=== PATIENT | male | born 1980 | race Caucasian/White ===

== ENCOUNTER → 2018-11-02 | Outpatient (CLI) | payer MEDICARE, OTHER ==
[2018-11-02 08:34] LABS: Source, Urine Clean Catch
[2018-11-02 13:54] LABS: Bacteria Rare /hpf; Red Blood Cells, Urine Not Seen /hpf (0-2); Squamous Epithelial Cells Not Seen /hpf (Few); White Blood Cells, Urine Not Seen /hpf (0-5)
== END | disposition home or self-care (01) ==
LOC: LAB SHORT 08:30 → LAB SRC 08:30 → LAB FUT 11-02 08:30
PROVIDERS: Physician Assistant
DX: R30.9 Painful micturition, unspecified (principal); R10.31 Right lower quadrant pain
CPT/HCPCS: 81015; 87086

== ENCOUNTER → 2021-07-08 | Outpatient (CLI) | payer OTHER | END | disposition home or self-care (01) | LOC: LAB SHORT 14:17 | DX: N34.2 Other urethritis (principal) | CPT/HCPCS: 87086 ==

== ENCOUNTER → 2021-08-19 | Outpatient (CLI) | payer OTHER ==
[2021-08-19 16:53] LABS: BASOPHILS ABSOLUTE AUTO 0.05 K/mm3 (0.00-0.23); BASOPHILS PERCENT AUTO 1 % (0-2); EOSINOPHILS ABSOLUTE AUTO 0.13 K/mm3 (0.00-0.68); EOSINOPHILS PERCENT AUTO 2 % (0-6); Hematocrit 44.9 % (37.0-53.0); Hemoglobin 15.4 g/dL (13.5-17.5); IMMATURE GRAN ABSOLUTE AUTO 0.03 K/mm3 (0.00-0.10); IMMATURE GRAN PERCENT AUTO 0 % (0-1); LYMPHOCYTES ABSOLUTE AUTO 1.65 K/mm3 (0.84-5.20); LYMPHOCYTES PERCENT AUTO 21 % (21-46); MONOCYTES ABSOLUTE AUTO 0.68 K/mm3 (0.16-1.47); MONOCYTES PERCENT AUTO 9 % (4-13); Mean Corpuscular HGB 30.8 pg (26.0-34.0); Mean Corpuscular HGB Conc 34.3 g/dL (31.5-36.5); Mean Corpuscular Volume 90 fL (80-100); Mean Platelet Volume 9.8 fL (9.1-12.4); NEUTROPHILS ABSOLUTE AUTO 5.46 K/mm3 (1.96-9.15); NEUTROPHILS PERCENT AUTO 68 % (41-73); Platelet Count 209 K/mm3 (150-400); RDW Coefficient Variation 13.5 % (11.7-14.2); RDW Standard Deviation 43.7 fL (35.1-46.3)
[2021-08-19 16:57] LABS: Anion Gap 7 mmol/L (6-16); Blood Urea Nitrogen 10 mg/dL (8-24); CO2, Blood 27 mmol/L (21-32); Calcium, Blood 7.9 mg/dL (8.5-10.1); Chloride, Blood 108 mmol/L (98-108); Glomerular Filtration Rate >60 (60-); Glucose, Blood 129 mg/dL (70-99); Potassium, Blood 3.9 mmol/L (3.5-5.5); Sodium, Blood 142 mmol/L (136-145)
== END | disposition home or self-care (01) ==
LOC: LAB SHORT 16:45 → LAB 16:45
PROVIDERS: Physician Assistant Surgical
DX: R11.0 Nausea (principal); R53.83 Other fatigue
CPT/HCPCS: 80048; 84443; 85025

== ENCOUNTER 2021-12-28 15:51 | Emergency (ER) | payer OTHER ==
[~2021-12-28] VITALS: Ht 180.3 cm; Wt 104.3 kg
[2021-12-28] MEDS ORDERED: DULOXETINE HCL60 M1 PO (15:57)
[2021-12-28 17:56] LABS: BASOPHILS ABSOLUTE AUTO 0.05 K/mm3 (0.00-0.23); BASOPHILS PERCENT AUTO 0 % (0-2); EOSINOPHILS ABSOLUTE AUTO 0.06 K/mm3 (0.00-0.68); EOSINOPHILS PERCENT AUTO 0 % (0-6); Hematocrit 48.6 % (37.0-53.0); Hemoglobin 16.5 g/dL (13.5-17.5); IMMATURE GRAN ABSOLUTE AUTO 0.08 K/mm3 (0.00-0.10); IMMATURE GRAN PERCENT AUTO 1 % (0-1); LYMPHOCYTES ABSOLUTE AUTO 1.37 K/mm3 (0.84-5.20); LYMPHOCYTES PERCENT AUTO 9 % (21-46); MONOCYTES ABSOLUTE AUTO 0.81 K/mm3 (0.16-1.47); MONOCYTES PERCENT AUTO 5 % (4-13); Mean Corpuscular HGB 29.9 pg (26.0-34.0); Mean Corpuscular Volume 88 fL (80-100); Mean Platelet Volume 9.5 fL (9.1-12.4); NEUTROPHILS ABSOLUTE AUTO 12.82 K/mm3 (1.96-9.15); NEUTROPHILS PERCENT AUTO 85 % (41-73); Platelet Count 216 K/mm3 (150-400); RDW Coefficient Variation 12.7 % (11.7-14.2); RDW Standard Deviation 41.4 fL (35.1-46.3); Red Blood Cell Count 5.51 M/mm3 (4.30-5.90); White Blood Cell Count 15.19 K/mm3 (4.00-11.30)
[2021-12-28 18:07] LABS: Influenza A, PCR NEGATIVE (NEGATIVE); Influenza B, PCR NEGATIVE (NEGATIVE); Resp Syncytial Virus, PCR NEGATIVE (NEGATIVE); SARS-Cov-2 (COVID-19) PCR, MMC NEGATIVE (NEGATIVE)
[2021-12-28 18:10] LABS: Albumin, Blood 3.7 g/dL (3.4-5.0); Albumin/Globulin Ratio 1.3 (0.8-1.8); Bilirubin, Total 0.9 mg/dL (0.1-1.0); Bun/Creatinine Ratio 12.7 (12.0-20.0); Calcium, Blood 8.8 mg/dL (8.5-10.1); Creatinine, Blood 0.87 mg/dL (0.60-1.20); Globulin, Blood 2.9 g/dL (2.2-4.0); Potassium, Blood 4.1 mmol/L (3.5-5.5); Total Protein, Blood 6.6 g/dL (6.4-8.2)
[2021-12-28] MEDS ORDERED: OXAYDO5 M1 PO (19:41)
[2021-12-28] MEDS ORDERED: IBUP800 PO (19:41)
== END 2021-12-28 21:50 | disposition home or self-care (01) ==
LOC: ER 15:51
PROVIDERS: Physician Assistant
DX: S52.001A Unspecified fracture of upper end of right ulna, initial encounter for closed fracture (principal); V18.4XXA Pedal cycle driver injured in noncollision transport accident in traffic accident, initial encounter; Z88.1 Allergy status to other antibiotic agents
CPT/HCPCS: 0241U; 72040; 73070; 73080; 80053; 85025; A9270; J1170; J1885; J2405; J2704; J7030

== ENCOUNTER 2022-06-24 08:10 | Emergency (ER) | payer OTHER ==
[~2022-06-24] VITALS: Ht 180.3 cm; Wt 108.9 kg
[~2022-06-24 08:10] MED LIST: DULOXETINE HCL60 M1 PO; IBUP800 PO; OXAYDO5 M1 PO
[2022-06-24] MEDS ORDERED: HYDR1TAB94 PO (10:33)
== END 2022-06-24 11:03 | disposition home or self-care (01) ==
LOC: ER 08:10
DX: S30.0XXA Contusion of lower back and pelvis, initial encounter (principal); W01.190A Fall on same level from slipping, tripping and stumbling with subsequent striking against furniture, initial encounter; J45.909 Unspecified asthma, uncomplicated; Z88.1 Allergy status to other antibiotic agents; Z79.899 Other long term (current) drug therapy
CPT/HCPCS: 72100; 72220; 99283-25; A9270

== ENCOUNTER 2023-10-09 11:26 | Day surgery (SDC) | payer OTHER ==
[~2023-10-09] VITALS: Ht 180.3 cm; Wt 116.0 kg
[~2023-10-09 11:26] MED LIST changes: +EPINEPhrine HCl 1 MG / ML 30ML Vial ONE; +FAMO20 PO; +HYDR1TAB94 PO; +LORA10ER PO; +Lactated Ringer's 1,000 ML IV ONE; +MAGNESIUM; +MELATONIN5 M1 PO; +TRAZ50 PO
[2023-10-09] MEDS ORDERED: Lactated Ringer's 1,000 ML IV ONE (12:18)
[2023-10-09] MEDS ORDERED: Dexamethasone Sod Phos 10 MG/ML 1ML VIAL ONE (13:52)
[2023-10-09] MEDS ORDERED: propofoL 20 ML IV ONE (13:52)
[2023-10-09] MEDS ORDERED: FentaNYL Citrate 50 MCG/ML 2 ML Injection ONE (13:52)
[2023-10-09] MEDS ORDERED: Ondansetron HCl 2 MG / ML 2ML Vial ONE (13:52)
[2023-10-09] MEDS ORDERED: Sugammadex Sodium 200 MG/2ML SDV (100 MG/ML) ONE (13:52)
[2023-10-09] MEDS ORDERED: Rocuronium Bromide 10 MG/ML 5ML Injection IV ONE (13:52)
[2023-10-09] MEDS ORDERED: Lidocaine 1%-Epineph 1:200000 30 ML SDV XX ONE (14:20)
--- NOTE | 2023-10-09 15:11 | NUR ---
10/09/23 1511 CONNIE SALAZAR PT CAME OUT COUGHING AND MOVING FROM OR W/O ANY DRESSING UNDER NARES. NO BLEEDING/DRAINAGE
[2023-10-09] MEDS ORDERED: OxyCODONE HCL 5 MG TAB ONE (15:59)
[2023-10-09 16:09] VITALS: BP 117/95
--- NOTE | 2023-10-09 16:15 | NUR ---
10/09/23 2817 CONNIE SALAZAR PT HAS CANE SENT HOME WITH HIM AT [place]
== END 2023-10-09 16:14 | disposition home or self-care (01) ==
LOC: ORSCSDS 11:26
PROVIDERS: Otolaryngology
PROC: 09SL0ZZ Reposition Nasal Turbinate, Open Approach (ICD-10-PCS; principal; 2023-10-09 13:30)
PROC: 09BM0ZZ Excision of Nasal Septum, Open Approach (ICD-10-PCS; principal; 2023-10-09 13:30)
DX: J34.2 Deviated nasal septum (principal); J34.3 Hypertrophy of nasal turbinates; G47.33 Obstructive sleep apnea (adult) (pediatric); K21.9 Gastro-esophageal reflux disease without esophagitis; G62.9 Polyneuropathy, unspecified; E66.9 Obesity, unspecified; Z68.35 Body mass index [BMI] 35.0-35.9, adult; Z79.899 Other long term (current) drug therapy; F41.8 Other specified anxiety disorders
CPT/HCPCS: A9270; J0171; J1100; J2405; J2704; J3010; J7120

== ENCOUNTER 2024-04-02 11:19 | Emergency (ER) | payer OTHER ==
[~2024-04-02] VITALS: Ht 180.3 cm; Wt 122.5 kg
[~2024-04-02 11:19] MED LIST changes: -EPINEPhrine HCl 1 MG / ML 30ML Vial ONE; -Lactated Ringer's 1,000 ML IV ONE
[2024-04-02 11:23] VITALS: BP 157/111
[2024-04-02 11:56] LABS: BASOPHILS ABSOLUTE AUTO 0.06 K/mm3 (0.00-0.23); BASOPHILS PERCENT AUTO 1 % (0-2); EOSINOPHILS ABSOLUTE AUTO 0.21 K/mm3 (0.00-0.68); EOSINOPHILS PERCENT AUTO 2 % (0-6); Hematocrit 49.5 % (37.0-53.0); Hemoglobin 17.2 g/dL (13.5-17.5); IMMATURE GRAN ABSOLUTE AUTO 0.04 K/mm3 (0.00-0.10); IMMATURE GRAN PERCENT AUTO 0 % (0-1); LYMPHOCYTES ABSOLUTE AUTO 2.48 K/mm3 (0.84-5.20); LYMPHOCYTES PERCENT AUTO 27 % (21-46); MONOCYTES ABSOLUTE AUTO 0.74 K/mm3 (0.16-1.47); MONOCYTES PERCENT AUTO 8 % (4-13); Mean Corpuscular HGB 30.3 pg (26.0-34.0); Mean Corpuscular HGB Conc 34.7 g/dL (31.5-36.5); Mean Corpuscular Volume 87 fL (80-100); Mean Platelet Volume 9.3 fL (9.1-12.4); NEUTROPHILS ABSOLUTE AUTO 5.77 K/mm3 (1.96-9.15); NEUTROPHILS PERCENT AUTO 62 % (41-73); Platelet Count 222 K/mm3 (150-400); RDW Coefficient Variation 13.2 % (11.7-14.2); RDW Standard Deviation 42.3 fL (35.1-46.3); Red Blood Cell Count 5.67 M/mm3 (4.30-5.90)
[2024-04-02 12:26] LABS: Albumin, Blood 3.6 g/dL (3.4-5.0); Albumin/Globulin Ratio 0.9 (0.8-1.8); Bilirubin, Total 1.1 mg/dL (0.1-1.0); Calcium, Blood 8.7 mg/dL (8.5-10.1); Creatinine, Blood 0.94 mg/dL (0.60-1.20); Potassium, Blood 3.5 mmol/L (3.5-5.5); Total Protein, Blood 7.6 g/dL (6.4-8.2)
[2024-04-02] MEDS ORDERED: LIDO700A20 TOP (15:06)
[2024-04-02] MEDS ORDERED: IBUP800 PO (15:06)
== END 2024-04-02 15:18 | disposition home or self-care (01) ==
LOC: ER 11:19
PROVIDERS: Physician Assistant
DX: R07.89 Other chest pain (principal); J45.909 Unspecified asthma, uncomplicated; Z88.1 Allergy status to other antibiotic agents; Z88.8 Allergy status to other drugs, medicaments and biological substances; Z79.899 Other long term (current) drug therapy; V28.91XA Unspecified electric (assisted) bicycle rider injured in noncollision transport accident in traffic accident, initial encounter
CPT/HCPCS: 71046; 80053; 83690; 84484; 85025; 93005; 93010; 99285-25

== ENCOUNTER 2024-07-03 11:29 | Observation (INO) | payer OTHER ==
[~2024-07-03] VITALS: Ht 180.3 cm; Wt 127.5 kg
[~2024-07-03 11:29] MED LIST changes: -CELE100 PO; -FLUTICASONE-SA1 EAC8 INH; -Ventolin5 MG/1 ML INH
[2024-07-03] MEDS ORDERED: FLU VACC TS2024-25(6MOS UP)/PF 45 MCG/0.5 ML SYRINGE IM ONE (14:10)
[2024-07-03] MEDS ORDERED: Ondansetron HCl 2 MG / ML 2ML Vial IV PRN (14:10)
[2024-07-03] MEDS ORDERED: Regadenoson 0.4 MG/5 ML SYRINGE ONE (14:50)
[2024-07-03] MEDS ORDERED: Potassium Chloride 20 MEQ TabCR PO ONE ×2 (16:20→17:40)
[2024-07-03 16:27] VITALS: BP 159/89
[2024-07-03] MEDS ORDERED: CELE100 PO (16:32)
[2024-07-03] MEDS ORDERED: FLUTICASONE-SA1 EAC8 INH (16:54)
[2024-07-03] MEDS ORDERED: Ventolin5 MG/1 ML INH (16:55)
--- NOTE | 2024-07-03 17:38 | NUR ---
SHIFT SUMMARY PT A NEW ADMIT THIS EVENING. AOX4, INDEPENDENT IN THE ROOM. NO C/O CP OR PRESSURE SINCE ADMIT TO THE FLOOR. HE HAS NO COMPLAINTS AT THIS TIME. HE IS ON TELE, NO EVENTS SINCE THE ADMIT. REPOSITIONS SELF IN BED. SECOND PART OF STRESS TEST IN THE AM, HE IS TO BE NPO AT MIDNIGHT TONIGHT. CALLS AND MAKES HIS NEEDS KNOWN. CALL LIGHT WITHIN REACH, BED LOCKED AND IN THE LOWEST POSITION. WILL REPORT TO ONCOMING NURSE.
[2024-07-03] MEDS ORDERED: Albuterol 2.5 MG/3 ML VIAL INH PRN (18:00)
[2024-07-03] MEDS ORDERED: DULoxetine HCL 30 MG Cap DR PO SCH ×2 (18:00→21:00)
[2024-07-03] MEDS ORDERED: Celecoxib 100 MG Cap PO SCH (18:00)
[2024-07-03] MEDS ORDERED: Famotidine 20 MG Tab PO SCH (18:00)
[2024-07-03] MEDS ORDERED: Mometasone/Formoterol MDI 100/5 mcg 13 GM INH SCH (18:10)
[2024-07-03 20:09] VITALS: BP 144/85
[2024-07-03] MEDS ORDERED: TraZODone HCl 50 MG Tab PO SCH (21:00)
[2024-07-03] MEDS ORDERED: Melatonin 5 MG Tablet PO SCH (21:00)
[2024-07-04 00:31] VITALS: BP 126/85
--- NOTE | 2024-07-04 03:43 | NUR ---
SHIFT SUMMARY 44 YR M ADMITTED ON 07/03/24. FULL CODE. NO ACUTE CHANGES THIS SHIFT. PT HAS HAD NO C/O CHEST PAIN OR SOB THIS SHIFT. HE APPEARS TO HAVE SLEPT FOR MOST OF THIS SHIFT. NO ADVERSE EVENTS REPORTED FROM [facility]. NPO SINCE MIDNIGHT IN ANTICIPATION OF STRESS TEST, PART TWO, THIS A.M. BED IN LOW POSITION AND CALL LIGHT IN REACH.
[2024-07-04 04:25] VITALS: BP 126/83
[2024-07-04 05:02] LABS: CHOL/HDL RATIO 5.3; Cholesterol 165 mg/dL (50-200); HDL Cholesterol 31 mg/dL (>39); LDL/HDL RATIO 3.7; Low Density Lipoprotein Chol 116 mg/dL (0-110); Triglycerides 92 mg/dL (30-160); Very Low Density Lipoprot Chol 18 mg/dL (6-32)
[2024-07-04 07:35] VITALS: BP 140/90
[2024-07-04] MEDS ORDERED: Enoxaparin 40 MG/0.4 ML SYR SC SCH (09:00)
[2024-07-04] MEDS ORDERED: Aspirin 81 MG Chew PO SCH (09:00)
[2024-07-04 09:24] LABS: Albumin, Blood 3.5 g/dL (3.4-5.0); Bilirubin, Total 1.7 mg/dL (0.1-1.0); Calcium, Blood 8.5 mg/dL (8.5-10.1); Globulin, Blood 3.4 g/dL (2.2-4.0); Potassium, Blood 3.6 mmol/L (3.5-5.5); Total Protein, Blood 6.9 g/dL (6.4-8.2)
[2024-07-04 11:33] VITALS: BP 131/91
--- NOTE | 2024-07-04 16:57 | NUR ---
DISCHARGE NOTE PT DISCHARGED TO HOME, PICKED UP BY HIS BROTHER. IV REMOVED. TELE RETURNED. DISCHARGE EDUCATION AND INFORMATION PROVIDED TO THE PT. NO NEW MEDICATIONS. PERSONAL BELONGINGS RETURNED.
== END 2024-07-04 16:46 | disposition home or self-care (01) ==
LOC: ER 11:29 → MEDS 14:07
PROVIDERS: Family Medicine; ADMIT Internal Medicine
DX: R07.9 Chest pain, unspecified (principal); F41.1 Generalized anxiety disorder; E87.6 Hypokalemia; I10 Essential (primary) hypertension; K21.9 Gastro-esophageal reflux disease without esophagitis; G47.00 Insomnia, unspecified; F32.A Depression, unspecified; M54.30 Sciatica, unspecified side; Z82.49 Family history of ischemic heart disease and other diseases of the circulatory system; Z79.899 Other long term (current) drug therapy; Z88.8 Allergy status to other drugs, medicaments and biological substances; Z88.1 Allergy status to other antibiotic agents
CPT/HCPCS: 36415; 71046; 78452; 80053; 80061; 83690; 83735; 84484; 85025; 85379; 93005; 93010; 93017; 94640; 94664; 94760; 96372; 99285-25; A9270; A9500; G0378; J1650; J2785

== ENCOUNTER → 2024-07-03 | Outpatient (CLI) | payer OTHER ==
[~2024-07-03] MED LIST changes: +CELE100 PO; +FLUTICASONE-SA1 EAC8 INH; +LIDO700A20 TOP; +Ventolin5 MG/1 ML INH
[2024-07-03 08:49] LABS: BASOPHILS ABSOLUTE AUTO 0.07 K/mm3 (0.00-0.23); BASOPHILS PERCENT AUTO 1 % (0-2); EOSINOPHILS PERCENT AUTO 2 % (0-6); Hematocrit 49.6 % (37.0-53.0); Hemoglobin 17.2 g/dL (13.5-17.5); IMMATURE GRAN ABSOLUTE AUTO 0.04 K/mm3 (0.00-0.10); IMMATURE GRAN PERCENT AUTO 0 % (0-1); LYMPHOCYTES ABSOLUTE AUTO 2.68 K/mm3 (0.84-5.20); LYMPHOCYTES PERCENT AUTO 30 % (21-46); MONOCYTES PERCENT AUTO 8 % (4-13); Mean Corpuscular HGB 30.4 pg (26.0-34.0); Mean Corpuscular HGB Conc 34.7 g/dL (31.5-36.5); Mean Corpuscular Volume 88 fL (80-100); Mean Platelet Volume 9.5 fL (9.1-12.4); NEUTROPHILS ABSOLUTE AUTO 5.24 K/mm3 (1.96-9.15); NEUTROPHILS PERCENT AUTO 59 % (41-73); Platelet Count 234 K/mm3 (150-400); RDW Coefficient Variation 13.2 % (11.7-14.2); RDW Standard Deviation 42.1 fL (35.1-46.3); Red Blood Cell Count 5.65 M/mm3 (4.30-5.90); White Blood Cell Count 8.93 K/mm3 (4.00-11.30)
[2024-07-03 09:00] LABS: Albumin, Blood 3.8 g/dL (3.4-5.0); Bilirubin, Total 1.2 mg/dL (0.1-1.0); Bun/Creatinine Ratio 9.7 (12.0-20.0); Calcium, Blood 8.1 mg/dL (8.5-10.1); Creatinine, Blood 1.13 mg/dL (0.60-1.20); Globulin, Blood 3.8 g/dL (2.2-4.0); Magnesium, Blood 2.4 mg/dL (1.6-2.4); Potassium, Blood 3.3 mmol/L (3.5-5.5); Total Protein, Blood 7.6 g/dL (6.4-8.2)
== END | disposition home or self-care (01) ==
LOC: LAB SHORT 08:44 → LAB 08:44
PROVIDERS: Family Medicine
DX: R07.9 Chest pain, unspecified (principal)
CPT/HCPCS: 80053; 83690; 83735; 84484; 85025; 85379

== ENCOUNTER 2025-03-27 14:39 | Observation (INO) | payer OTHER ==
[~2025-03-27] VITALS: Ht 180.3 cm; Wt 77.1 kg
[~2025-03-27 14:39] MED LIST changes: +CELE100 PO; +FLUTICASONE-SA1 EAC8 INH; +Ventolin5 MG/1 ML INH
[2025-03-27 15:08] LABS: Source, Urine Clean Catch
[2025-03-27 15:34] LABS: BASOPHILS ABSOLUTE AUTO 0.05 K/mm3 (0.00-0.23); BASOPHILS PERCENT AUTO 1 % (0-2); EOSINOPHILS ABSOLUTE AUTO 0.05 K/mm3 (0.00-0.68); EOSINOPHILS PERCENT AUTO 1 % (0-6); Hematocrit 51.3 % (37.0-53.0); Hemoglobin 17.5 g/dL (13.5-17.5); IMMATURE GRAN ABSOLUTE AUTO 0.03 K/mm3 (0.00-0.10); IMMATURE GRAN PERCENT AUTO 0 % (0-1); LYMPHOCYTES ABSOLUTE AUTO 2.06 K/mm3 (0.84-5.20); LYMPHOCYTES PERCENT AUTO 20 % (21-46); MONOCYTES ABSOLUTE AUTO 0.67 K/mm3 (0.16-1.47); MONOCYTES PERCENT AUTO 7 % (4-13); Mean Corpuscular HGB Conc 34.1 g/dL (31.5-36.5); Mean Corpuscular Volume 86 fL (80-100); NEUTROPHILS ABSOLUTE AUTO 7.33 K/mm3 (1.96-9.15); NEUTROPHILS PERCENT AUTO 72 % (41-73); NRBC ABSOLUTE 0.00 K/mm3 (0.00-0.02); NRBC Auto 0.0 /100 WBC (0.0-0.2); Platelet Count 248 K/mm3 (150-400); RDW Coefficient Variation 12.8 % (11.7-14.2); RDW Standard Deviation 39.8 fL (35.1-46.3)
[2025-03-27 15:39] LABS: U Amphetamine Screen Not Detected; U Barbiturate Screen Not Detected; U Benzodiazapine Screen Not Detected; U Buprenorphine Screen Not Detected; U Cannabinoids Screen Not Detected; U Cocaine Screen Not Detected; U Methadone Screen Not Detected; U Methamphetamine Screen Not Detected; U Opiates Screen Not Detected; U Phencyclidine Screen Not Detected
[2025-03-27 15:40] LABS: U Oxycodone Screen Not Detected
[2025-03-27 15:46] LABS: Bilirubin, Urine Neg (Neg); Color, Urine Yellow (P-Yellow); Glucose Qualitative, Urine Neg (Neg); Ketones, Urine 1+ (Neg); Leukocyte Esterase, Urine Neg (Neg); Protein, Urine 1+ (Neg); Specific Gravity, Urine 1.005 (1.003-1.022); Urobilinogen, Urine NORM (Normal)
[2025-03-27 15:50] LABS: White Blood Cells, Urine 0-2 /hpf (0-5)
[2025-03-27 15:56] LABS: Ethanol (Alcohol), Blood, Med <3 mg/dL
[2025-03-27 16:06] LABS: Acetaminophen, Random <2.0 ug/mL (10.0-30.0); Alanine Aminotransfer (ALT/SGP 53 U/L (12-78); Albumin, Blood 3.9 g/dL (3.4-5.0); Albumin/Globulin Ratio 1.1 (0.8-1.8); Anion Gap 11 mmol/L (3-11); Aspartate Aminotrans (AST/SGOT 30 U/L (12-37); Bilirubin, Total 1.6 mg/dL (0.1-1.0); Blood Urea Nitrogen 8 mg/dL (8-24); CO2, Blood 24 mmol/L (21-32); Calcium, Blood 8.6 mg/dL (8.5-10.1); Chloride, Blood 106 mmol/L (98-108); Creatinine, Blood 1.00 mg/dL (0.60-1.20); Globulin, Blood 3.7 g/dL (2.2-4.0); Glucose, Blood 102 mg/dL (70-99); Potassium, Blood 3.5 mmol/L (3.5-5.5); Sodium, Blood 137 mmol/L (136-145); Total Protein, Blood 7.6 g/dL (6.4-8.2)
[2025-03-27 16:07] LABS: Salicylate <1.7 mg/dL (2.8-20.0)
[2025-03-28 09:16] VITALS: BP 131/93
== END 2025-03-28 12:58 | disposition home or self-care (01) ==
LOC: ER 14:39 → EOR 14:40
PROVIDERS: Emergency Medicine; ADMIT Emergency Medicine
DX: F43.21 Adjustment disorder with depressed mood (principal); F41.1 Generalized anxiety disorder; F43.12 Post-traumatic stress disorder, chronic; R45.851 Suicidal ideations; Z88.1 Allergy status to other antibiotic agents; Z88.8 Allergy status to other drugs, medicaments and biological substances
CPT/HCPCS: 36415; 80053; 80320; 81001; 85025; 93005; 93010; 99285; A9270; G0378; G0480